=== PATIENT | female | born 1985 | race African-American/Black ===

== ENCOUNTER 2017-10-06 15:55 | Emergency (ER) | payer SELFPAY ==
[~2017-10-06] VITALS: Ht 167.6 cm; Wt 65.0 kg
[2017-10-06 16:02] VITALS: BP 108/78
== END 2017-10-06 17:54 | disposition left against medical advice (07) ==
LOC: ER 16:07
DX: Z04.8 Encounter for examination and observation for other specified reasons (principal); Z53.21 Procedure and treatment not carried out due to patient leaving prior to being seen by health care provider